=== PATIENT | female | born 1960 | race Caucasian/White ===

== ENCOUNTER → 2017-03-13 | Outpatient (CLI) | payer OTHER ==
[~2017-03-13] MED LIST: ASPIRIN 81MG TA81 MG PO; AVAPRO300 MG PO; CARVEDILOL 25MG25 MG PO; CLONIDINE 0.1M0.1 MG TD; HYDROCHLOROTHIA25 M1 PO; LEVOTHYROXINE0.1 MG PO; METFORMIN HCL1000 MG PO; NASONEX0.05 MG/AC NS; PRANDIN1 MG PO; PRILOSEC20 M1 PO
[2017-03-13 10:35] LABS: BUN 11 mg/dL (7-18)
[2017-03-13 10:36] LABS: GFR (ESTIMATED) 86 ML/MIN (59-)
== END ==
LOC: LAB 08:02
PROVIDERS: Internal Medicine Adolescent Medicine
DX: E11.29 Type 2 diabetes mellitus with other diabetic kidney complication (principal); E03.9 Hypothyroidism, unspecified; R60.0 Localized edema

== ENCOUNTER → 2017-03-13 | Outpatient (CLI) | payer OTHER ==
--- NOTE | 2017-03-13 10:40 | CARDIOVASCULAR REPORT ---
"Venous Exam Indications: 729.5 Pain in limb. IMPRESSIONS 1. There is no evidence of significant Reflux. 2. No evidence of deep or superficial vein thrombosis involving the right lower extremity Right lower extremity venous duplex evaluation. Doppler flow study including spectral analysis, color and petty scale imaging. Location: Vascular laboratory. Patient status: Outpatient. Tables: Venous flow and imaging: + +-------+ + |Location |Overall|Flow properties | + +-------+ + |Right common femoral |Patent |Normal phasicity; spontaneous; | | | |normal augmentation; compressible| + +-------+ + |Right saphenofemoral junction|Patent |Compressible | + +-------+ + |Right profunda femoral |Patent |Compressible | + +-------+ + |Right femoral |Patent |Normal phasicity; spontaneous; | | | |normal augmentation; compressible| + +-------+ + |Right greater saphenous |Patent |Normal phasicity; spontaneous; | | | |normal augmentation; compressible| + +-------+ + |Right popliteal |Patent |Normal phasicity; spontaneous; | | | |normal augmentation; compressible| + +-------+ + |Right posterior tibial |Patent |Compressible | + +-------+ + |Right peroneal |Patent |Compressible | + +-------+ + |Right gastrocnemius |Patent |Compressible | + +-------+ + |Right soleal |Patent |Compressible | + +-------+ + (Report amended ) Electronically signed by: Matthew Hua [id number]"
== END ==
LOC: RT 10:18
DX: R60.0 Localized edema (principal)

== ENCOUNTER → 2017-09-18 | Outpatient (CLI) | payer OTHER ==
[2017-09-18 08:25] LABS: BUN 11 mg/dL (7-18)
[2017-09-18 08:34] LABS: GFR (ESTIMATED) 86 ML/MIN (59-)
== END ==
LOC: LAB 07:38
PROVIDERS: Internal Medicine Adolescent Medicine
DX: I10 Essential (primary) hypertension (principal); E11.29 Type 2 diabetes mellitus with other diabetic kidney complication